=== PATIENT | female | born 1995 | race Hispanic/Latino ===

== ENCOUNTER 2024-08-03 23:02 | Emergency (ER) | payer SELFPAY ==
[~2024-08-03] VITALS: Ht 154.9 cm; Wt 86.6 kg
[2024-08-03] MEDS: FAMOTIDINE 20MG TAB PO ONE (23:19)
[2024-08-03] MEDS: MAG/ALUM/SIMETH 30 ML UDCUP PO ONE (23:19)
[2024-08-03] MEDS: DiphenhydrAMINE HCL 25 MG CAPSULE PO ONE (23:19)
[2024-08-04] MEDS ORDERED: DIPH50 PO (00:34)
[2024-08-04] MEDS ORDERED: FAMO-136 PO (00:34)
--- NOTE | 2024-08-04 00:35 | ERN ---
ED Note History of Present Illness Stated Complaint: ALLERGIC REACTION, SOB Chief Complaint: Shortness of Breath Time Seen by MD: 23:07 Time Seen by Midlevel: 23:07 Dictation: The patient is a 29-year-old female with a history of gastric sleeve who pre sents to the emergency department with complaints of sensation of tingling on her throat and neck onset 10:00 p.m after eating. Patient reports she had some shortness of breath. Denies any rash. Denies any nausea vomiting or diarrhea, denies any abdominal pain or chest pain. No other complaints reported. Allergies: Coded Allergies: No Known Allergies (Unverified Allergy, Unknown, 08/03/24) Home Meds Active Scripts Diphenhydramine HCl (Benadryl) 50 Mg Cap, 50 MG PO TID PRN for ALLERGIC REACTION for 10 Days, #30 CAP 0 Refills Prov:ANASTASIA BARNEY [employer]PERINTENDENT [employer] 08/04/24 Famotidine (Pepcid) 20 Mg Tablet, 1 TAB PO DAILY for 10 Days, #10 TAB 0 Refills Prov:ANASTASIA BARNEY SUPERINTENDENT [employer]INE 08/04/24 Past Medical History Past Medical History: No Pertinent History Surgical History: Bariatric Surgery LMP: Jul 27, 2024 RN Note Reviewed/Agreed w/PFSH: Yes Review of System Dictation Constitutional: Negative for fever,chills, and weight loss Eyes: Negative for injury, pain,redness, and discharge ENT: Negative for injury,pain or swelling positive for tingling to throat and tongue Cardiovascular: Negative for chest pain, palpitations, and edema Respiratory: Negative for shortness of breath, cough, and wheezing, Abdomen/GI: Negative for abdominal pain, nausea, vomiting, diarrhea, and constipation Back: Negative for injury and pain : Negative for injury, bleeding and discharge MS/Extremity: Negative for injury and deformity Skin: Negative for rash, and discoloration Neuro: Negative for headache, weakness, numbness, tingling, and seizure Psych: Negative for suicide ideation, homicidal ideation, and hallucinations Initial Vital Sign VS Vital Signs Date Time Temp Pulse Resp B/P (MAP) Pulse Ox O2 Delivery O2 Flow Rate FiO2 08/03/24 23:03 98.4 98 20 146/91 100 Room Air Physical Exam Dictation Vital Signs reviewed General Appearance: Alert, oriented x 3, no acute distress, well developed, nourished. Head and Face: non-traumatic. Eyes: PERRL, pink conjunctivas, eyelid no trauma, anterior chamber with arcus senilis. Ears: Pinnas intact and no signs of trauma or erythema ear canals clear and no discharge TM no erythema Nose: No discharge, no bleeding. Oropharynx: Mouth normal, tongue pink. No swelling to tongue, no foreign object no erythema pharynx clear,no erythema, tonsils no exudates, no abscesses noted, mucous membrane moist Neck: Supple, non-tender, no thyromegaly, no masses, no JVD, no bruits Breast:Deferred Chest:No tenderness, no crepitus, no paradoxical movement, no retractions Lungs:Clear, well-ventilated, symmetric, no rales, no wheezing, no rhonchi, no stridor, good breath sounds bilaterally Heart: Regular rate, regular rhythm, no murmur, no gallops Vascular: no peripheral edema, Abdomen: Soft, positive bowel sounds, nondistended, no guarding, nontender, no rebound, no masses no hepatomegaly, no splenomegaly, no Villeda's sign, no hernias. Rectal: Deferred Genital: Deferred Neurological: Normal speech, motor function intact, sensory function intact Musculoskeletal: Neck nontender, full range of motion, back nontender, full range of motion, Extremities: nontender, full range of motion Skin: Color pink, dry, no turgor, no rash, no lacerations, no abrasions, no contusions. Lymphatic: Deferred Results (Laboratory/Radiology) Labs Reviewed?: Yes ED Course ED Course Orders Procedure Category Date Status Time Famotidine 20mg Tab PHA 08/03/24 Complete (Pepcid 20mg Tab) 23:30 Diphenhydramine Hcl PHA 08/03/24 Complete (Benadryl Cap) 23:30 Mag/Alum/Simeth 30ml PHA 08/03/24 Complete (Maalox Plus 30ml) 23:30 Current Medications Medications (Trade) Dose Ordered Sig/Penny Route PRN Reason Start Time Stop Time Status Last Admin Dose Admin Al Hydroxide/Mg Hydroxide (MAALox PLUS 30ML) 30 ml ONCE ONCE PO 08/03/24 23:30 08/03/24 23:31 DC 08/03/24 23:19 Diphenhydramine HCl (BENAdryl CAP) 25 mg ONCE ONCE PO 08/03/24 23:30 08/03/24 23:31 DC 08/03/24 23:19 Famotidine (Pepcid 20mg Tab) 20 mg ONCE ONCE PO 08/03/24 23:30 08/03/24 23:31 DC 08/03/24 23:19 Vital Signs Date Time Temp Pulse Resp B/P (MAP) Pulse Ox O2 Delivery O2 Flow Rate FiO2 08/03/24 23:03 98.4 98 20 146/91 100 Room Air Medical Decision Making MDM The patient is a 29-year-old female with a history of gastric sleeve who presents to the emergency department with complaints of sensation of tingling on her throat and neck onset 10:00 p.m after eating. Patient reports she had some shortness of breath. Denies any rash. Denies any nausea vomiting or diarrhea, denies any abdominal pain or chest pain. No other complaints reported. Patient giving medication for allergic reaction and gastritis. Reports resolution of symptoms. Patient with clear lung sounds, nonlabored respirations, stable vital signs. Sensation could be related to an allergic reaction but can also be related to some gastric reflux. Patient with a nontender abdomen, no abdominal pain. We will be discharged to follow up with PCP. Differential diagnosis: Gastritis, allergic reaction, pharyngitis Need for hospitalization: Patient does not meet criteria for hospitalization. There are no social concerns with this patient. DX & DISP Disposition: Discharge Departure Impression: Primary Impression: Allergic reaction Condition: Stable Scripts Diphenhydramine HCl (Benadryl) 50 Mg Cap 50 MG PO TID PRN for ALLERGIC REACTION for 10 Days, #30 CAP 0 Refills Prov: ANASTASIA BARNEY [employer]PER[employer]ENDENT [employer] 08/04/24 Famotidine (Pepcid) 20 Mg Tablet 1 TAB PO DAILY for 10 Days, #10 TAB 0 Refills Prov: ANASTASIA BARNEY SUPERINTENDENT [employer] 08/04/24 Additional Instructions: FOLLOW-UP WITH PRIMARY CARE PROVIDER IN 1 TO 2 DAYS. TAKE MEDICATIONS DIRECTED HERE IN THE EMERGENCY ROOM. OKAY TO CONTINUE HOME MEDICATIONS UNLESS OTHERWISE DISCUSSED DURING YOUR VISIT IN THE EMERGENCY ROOM TODAY. RETURN TO YOUR NEAREST EMERGENCY ROOM IF SYMPTOMS WORSEN OR IF THERE IS NO IMPROVEMENT. CALL 911 IF YOU NEED IMMEDIATE ASSISTANCE. TAKE TYLENOL OR MOTRIN [id number] NEEDED AND IF NO CONTRAINDICATIONS ARE PRESENT. INCREASE ORAL HYDRATION. A WOUND CULTURE OR URINE CULTURE WAS ORDERED HERE IN THE EMERGENCY ROOM DEPARTMENT PLEASE FOLLOW-UP WITH PRIMARY CARE PROVIDER AND ADVISE THEM TO GET REPEAT PORTS FROM OUR FACILITY. IF YOU HAD ANY TASIA WRAP/SPLINTS THAT WERE APPLIED HERE, PLEASE DO NOT REMOVE THEM UNTIL YOU SEE YOUR PRIMARY CARE OR SPECIALTY. Time of Disposition: 00:33 I have reviewed the case, and I agree with, Diagnosis and Plan ANASTASIA BARNEY Aug 04, 2024 00:35
[2024-08-04 00:44] VITALS: BP 139/87; PULSE 92; RESP 18; TEMP 98.6; O2SAT 100
== END 2024-08-04 00:49 | disposition home or self-care (01) ==
LOC: EDH 23:02
DX: T78.40XA Allergy, unspecified, initial encounter (principal); Z79.899 Other long term (current) drug therapy; X58.XXXA Exposure to other specified factors, initial encounter
CPT/HCPCS: 99284; Q0163